=== PATIENT | female | born 1960 | race Caucasian/White ===

== ENCOUNTER → 2020-01-23 | Outpatient (REF) | payer MEDICARE ==
[2020-01-28 00:06] LABS: ALPRAZOLAM, URINE Negative (Cutoff=100); BENZODIAZEPINES, URINE Positive ng/mL (Cutoff=100); CANNABINOID, URINE Positive (Cutoff=20); CARBOXY THC (GC/MS) >300 ng/mL (Cutoff=10); CLONAZEPAM, URINE Positive (.); CLONAZEPAM, URINE CONFIRM 1040 ng/mL (Cutoff=100); CREATININE, URINE 125.2 mg/dL (20.0-300.0); FLURAZEPAM, URINE Negative (Cutoff=100); LORAZEPAM, URINE Negative (Cutoff=100); MIDAZOLAM, URINE Negative (Cutoff=100); NORDIAZEPAM, URINE Negative (Cutoff=100); OXAZEPAM, URINE Negative (Cutoff=100); TEMAZEPAM, URINE Negative (Cutoff=100); TRIAZOLAM, URINE Negative (Cutoff=100)
== END ==
LOC: M SFHCPLAZ 10:08
PROVIDERS: ATTEND Student in an Organized Health Care Education/Training Program
DX: Z02.83 Encounter for blood-alcohol and blood-drug test (principal); Z79.899 Other long term (current) drug therapy

== ENCOUNTER → 2020-05-28 | Outpatient (CLI) | payer MEDICARE ==
--- NOTE | 2020-05-30 12:27 | REPMRS ---
Patient History The patient states she has not had a clinical breast exam in over a year. No known family history of cancer. Patient states she had a left breast lumpectomy years ago that was negative Digital Woman Screen Mammo: May 28, 2020 - Exam #: [id number] Bilateral CC and MLO view(s) were taken. Technologist: Vanessa Carbajal, Technologist Prior study comparison: September 28, 2017, bilateral digital woman screen mammo, performed at [facility]. September 11, 2016, bilateral digital woman screen mammo, performed at [facility]. August 20, 2015, bilateral digital woman screen mammo, performed at [facility]. FINDINGS: There are scattered fibroglandular densities. The Volpara volumetric breast density category is:B. There has been no change in the appearance of the mammogram from the prior studies. There is a mild amount of scattered fibroglandular density which is fairly symmetric. There is no interval development of dominant mass, architectural distortion, or grouped microcalcification suggestive of malignancy. 3-D tomosynthesis shows no additional findings. Assessment: BI-RADS/ACR category 1 mammogram. Negative Mammogram. Recommendation Routine screening mammogram of both breasts in 1 year (for women over age 40). This patient's Lifetime Breast Cancer Risk is estimated at 7.8 %. This mammogram was interpreted with the aid of an FDA-approved computer-aided dectection system. Electronically Signed By: Young Dias MD 05/30/20 [id number]
== END ==
LOC: M WHC 15:39
PROVIDERS: ATTEND Physician Assistant
DX: Z12.39 Encounter for other screening for malignant neoplasm of breast (principal)